=== PATIENT | female | born 1985 | race Caucasian/White ===

== ENCOUNTER 2024-09-13 17:51 | Emergency (ER) | payer OTHER ==
[2024-09-13 18:12] VITALS: BMI 26.2
[2024-09-13 22:00] LABS: ABSOLUTE IMMATURE GRANULOCYTES 0.02 x10^3/uL (0.0-0.031); BASOPHILS # 0.04 x10^3/uL (0.01-0.08); EOSINOPHIL % 1.2 % (0.7-5.8); EOSINOPHILS # 0.08 x10^3/uL (0.04-0.36); HEMATOCRIT 34.6 % (34.1-44.9); HEMOGLOBIN 11.6 g/dL (11.2-15.7); MCHC 33.5 g/dl (32.2-35.5); MEAN CELL VOLUME 91.3 fl (79.4-94.8); MEAN PLT VOLUME 9.2 fl (9.4-12.3); MONOCYTE # 0.54 x10^3/uL (0.24-0.86); MONOCYTE % 7.9 % (4.7-12.5); PLATELET COUNT 320 x10^3/uL (182-369); RDW 12.2 % (12.1-16.8)
[2024-09-13 22:13] LABS: CHLORIDE 108 mmol/L (98-107); POTASSIUM 4.2 mmol/L (3.5-5.1); SODIUM 142 mmol/L (136-145)
[2024-09-13 22:15] LABS: BLOOD UREA NITROGEN 8.4 mg/dL (7-18); CALCIUM 9.3 mg/dL (8.5-10.1)
[2024-09-13 22:16] LABS: ALBUMIN 3.7 g/dl (3.4-5.0); ANION GAP 7 mmol/L (4-13); CO2 26 mmol/L (21-32); GLUCOSE,RANDOM 88 mg/dL (74-106)
[2024-09-13 22:19] LABS: CREATININE 0.7 mg/dL (0.55-1.3); SGOT/AST 9 U/L (15-37); SGPT/ALT 17 U/L (13-61)
[2024-09-13] MEDS ORDERED: ACETAMINOPHEN 325 MG TABLET (FP) ONE (22:19)
[2024-09-13 22:20] LABS: BILIRUBIN,TOTAL 0.9 mg/dL (0.2-1)
[2024-09-13] MEDS ORDERED: IBUPROFEN 400 MG TABLET (FP) PO ONE (22:20)
[2024-09-13 22:21] LABS: TOT PROT 7.1 g/dl (6.4-8.2)
[2024-09-13 22:22] LABS: ALK PHOS 67 U/L (45-117)
[2024-09-13] MEDS: IBUPROFEN 400 MG TABLET (FP) PO ONE (22:22)
[2024-09-13] MEDS: ACETAMINOPHEN 500 MG TABLET (FP) PO ONE (22:22)
[2024-09-13 22:40] VITALS: BP 118/76; PULSE 89; RESP 16; TEMP 97.8
== END 2024-09-13 22:40 | disposition home or self-care (01) ==
LOC: JER 17:51
DX: T19.2XXA Foreign body in vulva and vagina, initial encounter (principal); X58.XXXA Exposure to other specified factors, initial encounter
CPT/HCPCS: 36415; 76830-TC; 80053; 84702; 84703; 85025; 99284-25